=== PATIENT | female | born 1950 | race Caucasian/White ===

== ENCOUNTER 2017-05-18 10:45 | Day surgery (SDC) | payer OTHER ==
[~2017-05-18] VITALS: Ht 157.5 cm; Wt 57.6 kg
--- NOTE | ~2017-05-18 | EGD ---
EGD REPORT [facility] [address] [place] [address] NAME: ADELA BOOTHE : [birth year] STATUS : REG [facility]#: [id number] AGE: 66 ADM/REG DATE : 05/18/17 MR#: [id number] REPORT SERV DATE: 05/18/17 DICTATED BY: KENA KHOURY DATE: 05/18/17 REPORT STATUS : Draft TRANSCRIBED BY: [employer] DATE: 05/18/17 [facility] Patient Name: Adela Boothe Date of : 1950 Attending MD: KENA KHOURY, Procedure Date No Time: 05/18/2017 Procedure: Colonoscopy Indications: High risk colon cancer surveillance: Personal history of colonic polyps Referring MD: Wayne Garcia Medicines: Monitored Anesthesia Care Complications: No immediate complications. Estimated blood loss: None. Procedure: Pre-Anesthesia Assessment: - ASA Grade Assessment: III - A patient with severe systemic disease. After I obtained informed consent, the scope was passed under direct vision. Throughout the procedure, the patient's blood pressure, pulse, and oxygen saturations were monitored continuously. The PCF [id number] was introduced through the anus and advanced to the cecum, identified by appendiceal orifice and ileocecal valve. The colonoscopy was performed without difficulty. The patient tolerated the procedure well. The quality of the bowel preparation was good. Findings: The perianal and digital rectal examinations were normal. Internal hemorrhoids were found during retroflexion and were Grade I (internal hemorrhoids that do not prolapse). A few small-mouthed diverticula were found in the sigmoid colon. The exam was otherwise without abnormality on direct and retroflexion views. Two sessile polyps were found in the transverse colon. The polyps were 4 to 5 mm in size. These polyps were removed with a cold snare. Resection and retrieval were complete. Verification of patient identification for the specimen was done. Estimated blood loss was minimal. The exam was otherwise without abnormality on direct and retroflexion views. Impression: - Internal hemorrhoids. - Diverticulosis in the sigmoid colon. - The examination was otherwise normal on direct and retroflexion views. Recommendation: - Patient has a contact number available for EGD REPORT [address] [address] NAME: ADELA BOOTHE : [birth year] STATUS : REG [facility] PAT#: [id number] AGE: 66 ADM/REG DATE : 05/18/17 MR#: [id number] REPORT SERV DATE: 05/18/17 DICTATED BY: KENA KHOURY DATE: 05/18/17 REPORT STATUS : Draft TRANSCRIBED BY: [employer] DATE: 05/18/17 emergencies. The signs and symptoms of potential delayed complications were discussed with the patient. Return to normal activities tomorrow. Written discharge instructions were provided to the patient. - Return to previous diet. - Continue present medications. - Await pathology results. - Repeat colonoscopy for surveillance based on pathology results. Procedure Code(s): --- Professional --- 69666, Colonoscopy, flexible, proximal to splenic flexure; with removal of tumor(s), polyp(s), or other lesion(s) by snare technique Diagnosis Code(s): --- Professional --- K64.0, First degree hemorrhoids K57.30, Diverticulosis of large intestine without perforation or abscess without bleeding Z86.010, Personal history of colonic polyps CPT copyright 2013 [employer]. All rights reserved. The codes documented in this report are preliminary and upon tooling supervisor review may be revised to meet current compliance requirements. KENA KHOURY, 05/18/2017 1:31 PM Number of Addenda: 0 Note Initiated On: 05/18/2017 1:03 PM Scope Withdrawal Time 0 hours 10 minutes 47 seconds [address] [id number]
[~2017-05-18 10:45] MED LIST: ADVAIR250 INH; ATROVENTUD INH; CELEBREX2 PO; CELEXA10 PO; DSS; GLUCPH PO; LEVOTHYROXIN112 MCG PO; LIOR10 PO; MAX25 PO; MCZ25 PO; NEUR100 PO; PRILO PO; PROMETHAZI6.25 MG/5 PO; TRAZ100 PO; TRIDERM0.1 % EX; VENTOLIN HFA INH
== END 2017-05-18 23:59 | disposition home or self-care (01) ==
LOC: DMU 10:45
PROVIDERS: Internal Medicine Gastroenterology
PROC: 0DBL8ZX Excision of Transverse Colon, Via Natural or Artificial Opening Endoscopic, Diagnostic (ICD-10-PCS; principal; 2017-05-18 12:00)
DX: Z12.11 Encounter for screening for malignant neoplasm of colon (principal); D12.3 Benign neoplasm of transverse colon; K64.0 First degree hemorrhoids; K57.30 Diverticulosis of large intestine without perforation or abscess without bleeding; I49.9 Cardiac arrhythmia, unspecified; J44.9 Chronic obstructive pulmonary disease, unspecified; E11.9 Type 2 diabetes mellitus without complications; F41.9 Anxiety disorder, unspecified; Z86.010 Personal history of colon polyps; Z87.891 Personal history of nicotine dependence; Z79.899 Other long term (current) drug therapy; Z90.49 Acquired absence of other specified parts of digestive tract; Z90.710 Acquired absence of both cervix and uterus; Z90.722 Acquired absence of ovaries, bilateral; Z88.1 Allergy status to other antibiotic agents; Z98.890 Other specified postprocedural states
CPT/HCPCS: 82962; 88305